=== PATIENT | female | born 1965 | race African-American/Black ===

== ENCOUNTER 2017-12-23 22:58 | Emergency (ER) | payer BC ==
[~2017-12-23] VITALS: Ht 157.5 cm; Wt 67.7 kg
[2017-12-23 23:45] LABS: BASOPHIL (%) 0.5 % (0-1); BASOPHIL COUNT 0.1 K/uL (0-0.1); EOSINOPHIL (%) 1.3 % (0-5); EOSINOPHIL COUNT 0.1 K/uL (0-0.3); HEMATOCRIT 34.7 % (36.0-46.0); HEMOGLOBIN 12.3 G/DL (11.9-15.5); IMMATURE GRANULOCYTE (%) 0.5 % (0.0-0.7); LYMPHOCYTE COUNT 3.6 K/uL (1.0-2.8); MCH 30.5 PG (29.0-34.0); MCHC 35.4 G/DL (30.0-36.0); MCV 86.1 FL (83-99); MONOCYTE (%) 5.9 % (3-12); MONOCYTE COUNT 0.6 K/uL (0-0.8); NEUTROPHIL (%) 57.8 % (45-76); NEUTROPHIL COUNT 6.1 K/uL (1.8-6.4); PLATELET COUNT 271 K/uL (156-360); RBC DIS.WIDTH-CV 12.6 % (11.8-14.6); RBC DIS.WIDTH-SD 39.7 % (39-53); RED BLOOD COUNT 4.03 M/uL (3.80-5.20); WHITE BLOOD COUNT 10.5 K/uL (4.1-10.2)
[2017-12-23 23:55] LABS: ALBUMIN 4.4 g/dL (3.2-4.8); CHLORIDE 105 mEq/L (99-109); POTASSIUM 3.5 mEq/L (3.7-5.4)
[2017-12-23 23:56] LABS: SODIUM 139 mEq/L (136-147)
[2017-12-23 23:58] LABS: GLUCOSE 136 mg/dL (70-99); TOTAL PROTEIN 7.1 g/dL (6.4-8.3)
[2017-12-24] LABS: TOTAL BILIRUBIN 0.6 mg/dL (0.0-1.0)
[2017-12-24 00:01] LABS: ALKALINE PHOSPHATASE 92 IU/L (3-129); SERUM ETHYL ALCOHOL < 10 mg/dL
[2017-12-24 00:02] LABS: CREATININE 0.8 mg/dL (0.6-1.3)
[2017-12-24 00:03] LABS: AST (GOT) 22 IU/L (2-34); DIRECT BILIRUBIN 0.2 mg/dL (0.0-0.3); UREA NITROGEN (BUN) 10 mg/dL (9-23)
[2017-12-24 00:05] LABS: ALT (GPT) 13 IU/L (3-49)
[2017-12-24 00:06] LABS: GFR ESTIMATE (CALCULATED) > 59 mL/min/
[2017-12-24] MEDS ORDERED: NORCO 5/3251 TABLET PO (02:09)
[2017-12-24] MEDS ORDERED: MOTRIN600 MG PO (02:10)
[2017-12-24 02:46] VITALS: BP 117/68
== END 2017-12-24 02:47 | disposition home or self-care (01) ==
LOC: TRA 22:58
PROVIDERS: Emergency Medicine
DX: T14.8XXA Other injury of unspecified body region, initial encounter (principal); M25.552 Pain in left hip; M25.522 Pain in left elbow; M79.644 Pain in right finger(s); V03.10XA Pedestrian on foot injured in collision with car, pick-up truck or van in traffic accident, initial encounter; Y92.410 Unspecified street and highway as the place of occurrence of the external cause; F17.200 Nicotine dependence, unspecified, uncomplicated
CPT/HCPCS: 70450; 70486; 71260; 72125; 73030; 73080; 73130; 73502; 74177; 80048; 80076; 85025; 99281; 99285; G0480; J2270